=== PATIENT | female | born 1955 | race Hispanic/Latino ===

== ENCOUNTER 2021-05-29 16:09 | Emergency (ER) | payer MEDICARE ==
[2021-05-29] MEDS ORDERED: hydrALAZINE 20 MG/1 ML INJ IV ONE (17:02)
--- NOTE | 2021-05-29 17:18 | Emergency Department Report ---
ED General Adult HPI - General Chief complaint: High BP Stated complaint: BLOOD PRESSURE REF BY DR MAYA Source: patient Mode of arrival: Ambulatory Limitations: No Limitations - History of Present Illness Initial comments: 65-year-old female present to the ED for hypertension. Patient states she has been on her medication for 6 months. Patient patient referred to the ED for f urther evaluation by Dr. Finnegan. Patient was given clonidine 0.1 in office. Patient is alert and oriented x3. Patient denies any chest pain, shortness of breath ,or dizziness ,nausea/ vomiting. No acute distress noted. No ill appearance noted - Related Data Previous Rx's Medication Instructions Recorded Last Taken Type Metoprolol [Lopressor TAB] 50 mg PO DAILY 30 Days #30 tab 05/29/21 Unknown Rx Allergies Allergy/AdvReac Type Severity Reaction Status Date / Time No Known Allergies Allergy Verified 05/29/21 16:29 ED Review of Systems ROS: Stated complaint: BLOOD PRESSURE REF BY DR MAYA Other details as noted in HPI Constitutional: denies: chills, fever Eyes: denies: eye pain, eye discharge, vision change ENT: denies: ear pain, throat pain Respiratory: denies: cough, shortness of breath, wheezing Cardiovascular: denies: chest pain, palpitations Endocrine: no symptoms reported Gastrointestinal: denies: abdominal pain, nausea, diarrhea Genitourinary: denies: urgency, dysuria, discharge Musculoskeletal: denies: back pain, joint swelling, arthralgia Skin: denies: rash, lesions Neurological: denies: headache, weakness, paresthesias Psychiatric: denies: anxiety, depression Hematological/Lymphatic: denies: easy bleeding, easy bruising ED Past Medical Hx - Past Medical History Previous Medical History?: Yes Hx Hypertension: Yes - Medications Home Medications: Home Medications Medication Instructions Recorded Confirmed Last Taken Type Metoprolol [Lopressor TAB] 50 mg PO DAILY 30 Days #30 tab 05/29/21 Unknown Rx ED Physical Exam - General Limitations: No Limitations General appearance: alert, in no apparent distress - Head Head exam: Present: atraumatic, normocephalic - Eye Eye exam: Present: normal appearance - ENT ENT exam: Present: mucous membranes moist - Neck Neck exam: Present: normal inspection - Respiratory Respiratory exam: Present: normal lung sounds bilaterally. Absent: respiratory distress - Cardiovascular Cardiovascular Exam: Present: regular rate, normal rhythm. Absent: systolic murmur, diastolic murmur, rubs, gallop - GI/Abdominal GI/Abdominal exam: Present: soft, normal bowel sounds - Extremities Exam Extremities exam: Present: normal inspection - Back Exam Back exam: Present: normal inspection - Neurological Exam Neurological exam: Present: alert, oriented X3 - Psychiatric Psychiatric exam: Present: normal affect, normal mood - Skin Skin exam: Present: warm, dry, intact, normal color. Absent: rash ED Course Vital Signs 05/29/21 05/29/21 05/29/21 16:25 18:25 18:52 Temperature 97.3 F L 97.6 F Pulse Rate 73 74 Respiratory 16 18 Rate Blood Pressure 229/109 229/109 195/88 O2 Sat by Pulse 100 100 Oximetry ED Medical Decision Making - Lab Data Result diagrams: 05/29/21 17:25 05/29/21 17:25 Laboratory Results - last 24 hr 05/29/21 05/29/21 05/29/21 17:25 17:25 17:25 WBC 10.8 RBC 3.64 L Hgb 11.2 Hct 34.3 MCV 94 MCH 31 MCHC 33 RDW 16.1 H Plt Count 323 Lymph % (Auto) 30.7 [place] % (Auto) 9.7 H Eos % (Auto) 5.1 H Baso % (Auto) 0.8 Lymph # (Auto) 3.3 [place] # (Auto) 1.0 H Eos # (Auto) 0.6 H Baso # (Auto) 0.1 Seg Neutrophils % 53.7 Seg Neutrophils # 5.8 Sodium 138 Potassium 4.9 Chloride 108.1 H Carbon Dioxide 17 L Anion Gap 18 BUN 21 H Creatinine 2.5 H Estimated GFR 19 BUN/Creatinine Ratio 8 Glucose 95 Calcium 8.8 Total Bilirubin 0.50 AST 14 ALT 8 Alkaline Phosphatase 167 H Troponin T < 0.010 NT-Pro-B Natriuret Pep 8277 H Total Protein 7.4 Albumin 3.5 L Albumin/Globulin Ratio 0.9 Urine Color Urine Turbidity Urine pH Ur Specific [place] Urine Protein Urine Glucose (UA) Urine Ketones Urine Blood Urine Nitrite Urine Bilirubin Urine Urobilinogen Ur Leukocyte Esterase Urine WBC (Auto) Urine RBC (Auto) U Epithel Cells (Auto) Amorphous Crystals Urine Mucus 05/29/21 Unknown WBC RBC Hgb Hct MCV MCH MCHC RDW Plt Count Lymph % (Auto) [place] % (Auto) Eos % (Auto) Baso % (Auto) Lymph # (Auto) [place] # (Auto) Eos # (Auto) Baso # (Auto) Seg Neutrophils % Seg Neutrophils # Sodium Potassium Chloride Carbon Dioxide Anion Gap BUN Creatinine Estimated GFR BUN/Creatinine Ratio Glucose Calcium Total Bilirubin AST ALT Alkaline Phosphatase Troponin T NT-Pro-B Natriuret Pep Total Protein Albumin Albumin/Globulin Ratio Urine Color Yellow Urine Turbidity Slightly-cloudy Urine pH 5.0 Ur Specific [place] 1.009 Urine Protein 100 mg/dl Urine Glucose (UA) Neg Urine Ketones Neg Urine Blood Neg Urine Nitrite Neg Urine Bilirubin Neg Urine Urobilinogen < 2.0 Ur Leukocyte Esterase Neg Urine WBC (Auto) 3.0 Urine RBC (Auto) 2.0 U Epithel Cells (Auto) 23.0 H Amorphous Crystals 2+ Urine Mucus Few - EKG Data EKG shows normal: sinus rhythm Rate: normal - Radiology Data [facility] [address] [place] [address] XRay Report Signed Patient: LUDIVINA SAUNDERS MR#: [id number] : 1955 Acct:[id number] Age/Sex: 65 / F ADM Date: 05/29/21 Loc: ED Attending Dr: Ordering Physician: DELIA REVELES Date of Service: 05/29/21 Procedure(s): XR chest routine 2V Accession Number(s): [id number] cc: DELIA REVELES Fluoro Time In Minutes: CHEST 2 VIEWS INDICATION / CLINICAL INFORMATION: hypertension. COMPARISON: None available. FINDINGS: SUPPORT DEVICES: None. HEART / MEDIASTINUM: No significant abnormality. LUNGS / PLEURA: No significant pulmonary abnormality. No significant pleural effusion. No pneumothorax. ADDITIONAL FINDINGS: No significant additional findings. IMPRESSION: 1. No acute abnormality of the chest. Signer Name: Terrence Gann MD Signed: 05/29/2021 5:37 PM Workstation Name: [id number] Transcribed By: HALIE Dictated By: Terrence Gann MD Electronically Authenticated By: Terrence Gann MD Signed Date/Time: 05/29/211736 DD/ 36 TD/TT: - Medical Decision Making 65-year-old female present to the ED for hypertension. Patient states she has been on her medication for 6 months. Patient patient referred to the ED for further evaluation by Dr. Finnegan. Patient was given clonidine 0.1 in office. Patient is alert and oriented x3. Patient denies any chest pain, shortness of breath ,or dizziness ,nausea/ vomiting. No acute distress noted. No ill ana earance noted. Patient had prior lab work drawn at Dr. Tylor Franco office, Patient is noncompliant with medication. Discussed findings with patient. discuss finding to patient about hypertension and CHF along with acute renal failure. Patient did not wish to be admitted. Will refill patient medication for hypertension and patient to continue to lasix. patient to follow back up with primary care doctor. Patient signed AMA form. Discussed [facility] to [facility]. Patient is alert and verbally understand AMA form states she did not want to stay in the hospital for any further treatm ent. Critical care attestation.: If time is entered above; I have spent that time in minutes in the direct care of this critically ill patient, excluding procedure time. ED Disposition Clinical Impression: Hypertension Congestive heart failure (CHF) Qualifiers: Heart failure type: unspecified Heart failure chronicity: acute Qualified Cod e(s): I50.9 - Heart failure, unspecified Disposition: 01 HOME / SELF CARE / HOMELESS Is pt being admited?: No Does the pt Need Aspirin: No Condition: Stable Instructions: Heart Failure, Self Care, [id number], Hypertension, Adult, [id number], Hypertension (ED) Additional Instructions: take medication as prescribe follow up with primary care Prescriptions: Metoprolol [Lopressor TAB] 50 mg PO DAILY 30 Days #30 tab Referrals: CHRIS HE MD [Other] - 3-5 Days Forms: AMA Form Time of Disposition: 19:50
[2021-05-29] MEDS ORDERED: KETOROLAC 30 MG/1 ML INJ IM ONE (17:35)
--- NOTE | 2021-05-29 17:42 | XRay Report ---
CHEST 2 VIEWS INDICATION / CLINICAL INFORMATION: hypertension. COMPARISON: None available. FINDINGS: SUPPORT DEVICES: None. HEART / MEDIASTINUM: No significant abnormality. LUNGS / PLEURA: No significant pulmonary abnormality. No significant pleural effusion. No pneumothora x. ADDITIONAL FINDINGS: No significant additional findings. IMPRESSION: 1. No acute abnormality of the chest. Signer Name: Terrence Gann MD Signed: 05/29/2021 5:37 PM Workstation Name: [id number]
[2021-05-29 18:05] LABS: Basophils # (Auto) 0.1 K/mm3 (0.0-0.1); Basophils % (Auto) 0.8 % (0.0-1.8); Eosinophils # (Auto) 0.6 K/mm3 (0.0-0.4); Eosinophils % (Auto) 5.1 % (0.0-4.3); Hematocrit 34.3 % (30.3-42.9); Hemoglobin 11.2 gm/dl (10.1-14.3); Lymphocytes # (Auto) 3.3 K/mm3 (1.2-5.4); Lymphocytes % (Auto) 30.7 % (13.4-35.0); Mean Corpuscular HGB Conc 33 % (30-34); Mean Corpuscular Volume 94 fl (79-97); Monocytes % (Auto) 9.7 % (0.0-7.3); Platelet Count 323 K/mm3 (140-440); Red Blood Count 3.64 M/mm3 (3.65-5.03); Red Cell Distribution Width 16.1 % (13.2-15.2)
[2021-05-29 18:18] LABS: Alanine Aminotransferase 8 units/L (7-56); Albumin 3.5 g/dL (3.9-5); BUN/Creatinine Ratio 8; Blood Urea Nitrogen 21 mg/dL (7-17); Calcium 8.8 mg/dL (8.4-10.2); Hemolysis Index 11
[2021-05-29 18:26] LABS: Amorphous Crystals,Urine 2+; Bilirubin,Urine NEG (Negative); Blood,Urine NEG (Negative); Color,Urine Yellow (Yellow); Mucus,Urine FEW /HPF; Urobilinogen,Urine < 2.0 mg/dL (<2.0)
[2021-05-29 19:17] VITALS: BP 195/88
--- NOTE | 2021-05-30 09:31 | Electrocardiograph Report ---
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
== END 2021-05-29 19:54 | disposition home or self-care (01) ==
LOC: ED 16:09
DX: I11.0 Hypertensive heart disease with heart failure (principal); I50.9 Heart failure, unspecified; Z79.899 Other long term (current) drug therapy
CPT/HCPCS: 36415; 71046; 80053; 81001; 83880; 84484; 85025; 93005; 93010; 96374; 99284; J0360